=== PATIENT | female | born 1995 | race Two or more races ===

== ENCOUNTER 2019-04-24 08:50 | Inpatient (IN) | payer BC ==
[~2019-04-24] VITALS: Ht 170.2 cm; Wt 119.1 kg
[2019-04-25] MEDS ORDERED: OXYTOCIN 30U/ 0.9% NaCL 500ML 500 ML IV ONE (10:26)
[2019-04-25] MEDS: D5%-LACTATED RINGERS 1,000 ML IV SCH ×2 (10:26→22:04)
[2019-04-25] MEDS: LACTATED RINGERS 1,000 ML IV SCH ×2 (10:26→16:19)
[2019-04-25] MEDS ORDERED: CALCIUM CARBONATE 500 MG TAB.CHEW PO PRN (10:30)
[2019-04-25] MEDS ORDERED: TERBUTALINE 1 MG/ML, 1ML SQ PRN (10:30)
[2019-04-25] MEDS ORDERED: ONDANSETRON 2MG/ML, 2ML IVPush PRN (10:30)
[2019-04-25] MEDS ORDERED: FENTANYL PF 100 MCG/2ML IVPush PRN (10:30)
[2019-04-25] MEDS ORDERED: FENTANYL PF 100 MCG/2ML IV PRN (10:30)
[2019-04-25] MEDS ORDERED: TERBUTALINE 1 MG/ML, 1ML IVPush PRN (10:30)
[2019-04-25] MEDS ORDERED: MISOPROSTOL 25 MCG TABLET ONE ×2 (10:30→16:06)
[2019-04-25] MEDS: MISOPROSTOL 25 MCG TABLET VG PRN ×2 (10:46→16:00)
[2019-04-25 11:15] LABS: BASOPHILS # (AUTO) 0.01 x10^3/uL (0-0.1); BASOPHILS % (AUTO) 0 % (0-1); EOSINOPHILS # (AUTO) 0.01 x10^3/uL (0-0.4); EOSINOPHILS % (AUTO) 0 % (1-7); LYMPHOCYTES # (AUTO) 1.79 x10^3/uL (1-3.4); LYMPHOCYTES % (AUTO) 22 % (22-44); MD NO; MEAN CORPUSCULAR HEMOGLOBIN 29.3 pg (27.0-34.8); MEAN CORPUSCULAR VOLUME 88.8 fL (80-100); MEAN PLATELET VOLUME 7.9 fL (7.4-10.4); MONOCYTES # (AUTO) 0.65 x10^3/uL (0.2-0.8); MONOCYTES % (AUTO) 8 % (2-9); NEUTROPHILS # (AUTO) 5.57 x10^3/uL (1.8-6.8); NEUTROPHILS % (AUTO) 69 % (42-75); PLATELET COUNT 274 x10^3/uL (130-400); RED BLOOD COUNT 3.98 x10^6/uL (3.82-5.3)
[2019-04-25] MEDS ORDERED: NEWBORN KIT ONE (11:23)
[2019-04-25] MEDS ORDERED: FENTANYL/BUPIV./NS/PF 250 ML EPIDCONT SCH ×2 (20:11→21:09)
[2019-04-25] MEDS ORDERED: FENTANYL/BUPIV./NS/PF 250 ML EPIDCONT ONE ×2 (20:24→21:29)
[2019-04-25] MEDS ORDERED: OXYTOCIN 30U/ 0.9% NaCL 500ML 500 ML ONE (20:25)
[2019-04-25] MEDS ORDERED: LACTATED RINGERS 1,000 ML IV SCH (21:09)
[2019-04-25] MEDS ORDERED: BUPIVACAINE 0.25% ONE ×2 (21:27→21:29)
[2019-04-25] MEDS ORDERED: LACTATED RINGERS 1,000 ML IVBOLUS PRN (21:30)
[2019-04-25] MEDS ORDERED: EPHEDRINE 50 MG/ML, 1ML IVPush PRN (21:30)
[2019-04-25] MEDS ORDERED: NALOXONE 0.4 MG/ML, 1ML IVPush PRN (21:30)
[2019-04-25] MEDS: OXYTOCIN 30U/ 0.9% NaCL 500ML 500 ML IV PRN (21:55)
[2019-04-26 05:05] VITALS: BP 111/58
[2019-04-26] MEDS: LACTATED RINGERS 1,000 ML IV SCH (10:40)
[2019-04-26] MEDS ORDERED: ONDANSETRON 2MG/ML, 2ML ONE ×2 (10:42→13:13)
[2019-04-26] MEDS ORDERED: PREN1TAB60 PO (10:44)
[2019-04-26] MEDS ORDERED: OXYTOCIN 30U/ 0.9% NaCL 500ML 500 ML ONE (12:46)
[2019-04-26] MEDS: OXYTOCIN 30U/ 0.9% NaCL 500ML 500 ML IV PRN (13:01)
[2019-04-26] MEDS: OXYTOCIN 30U/ 0.9% NaCL 500ML 500 ML IV SCH ×2 (13:01→23:01)
[2019-04-26] MEDS ORDERED: SIMETHICONE 80 MG CHEW TAB PO PRN (13:30)
[2019-04-26] MEDS ORDERED: CARBOPROST TROMETHAMINE 250 MCG/ML, 1ML IM PRN (13:30)
[2019-04-26] MEDS ORDERED: RHOGAM FROM BLOOD BANK 1 NOTE EA IM/IV ONE (13:30)
[2019-04-26] MEDS ORDERED: OXYcodone/APAP 5/325MG TABLET PO PRN ×2 (13:30)
[2019-04-26] MEDS ORDERED: ONDANSETRON 2MG/ML, 2ML IV PRN (13:30)
[2019-04-26] MEDS ORDERED: METHYLERGONOVINE 0.2 MG/ML IM PRN (13:30)
[2019-04-26] MEDS ORDERED: MISOPROSTOL 200 MCG TABLET PR PRN (13:30)
[2019-04-26 14:38] LABS: BASOPHILS # (AUTO) 0.02 x10^3/uL (0-0.1); BASOPHILS % (AUTO) 0 % (0-1); EOSINOPHILS # (AUTO) 0.21 x10^3/uL (0-0.4); EOSINOPHILS % (AUTO) 1 % (1-7); LYMPHOCYTES # (AUTO) 0.93 x10^3/uL (1-3.4); LYMPHOCYTES % (AUTO) 5 % (22-44); MD NO; MEAN CORPUSCULAR HEMOGLOBIN 29.3 pg (27.0-34.8); MEAN CORPUSCULAR HGB CONC 32.9 g/dL (32.4-35.8); MEAN CORPUSCULAR VOLUME 89.1 fL (80-100); MONOCYTES # (AUTO) 1.03 x10^3/uL (0.2-0.8); MONOCYTES % (AUTO) 5 % (2-9); NEUTROPHILS # (AUTO) 18.53 x10^3/uL (1.8-6.8); NEUTROPHILS % (AUTO) 89 % (42-75); PLATELET COUNT 256 x10^3/uL (130-400); RED BLOOD COUNT 3.81 x10^6/uL (3.82-5.3); RED CELL DISTRIBUTION WIDTH 15.3 % (9.6-15.2)
[2019-04-26] MEDS ORDERED: IBUPROFEN 600 MG TABLET ONE (15:01)
[2019-04-26] MEDS ORDERED: IBUPROFEN 800 MG TABLET ONE (15:06)
[2019-04-26] MEDS: IBUPROFEN 800 MG TABLET PO PRN ×2 (15:07→23:07)
[2019-04-26 15:30] VITALS: BP 119/83
[2019-04-26] MEDS: ACETAMINOPHEN 500 MG TABLET PO PRN (16:40)
[2019-04-26] MEDS ORDERED: GENTAMICIN PER PHARMACY MC PRN (17:00)
[2019-04-26] MEDS: AMPICILLIN 2 GM in SODIUM CHLORIDE 0.9% 100 ML IV SCH ×2 (17:16→23:09)
[2019-04-26] MEDS: CLINDAMYCIN PMX 900MG/50ML 50 ML IV SCH (17:57)
[2019-04-26] MEDS ORDERED: PHARMACOKINETIC MONITORING MC PRN (18:00)
[2019-04-26] MEDS: GENTAMICIN 420 MG in SODIUM CHLORIDE 0.9% 100 ML IV SCH (19:17)
[2019-04-26] MEDS ORDERED: METHYLERGONOVINE 0.2 MG/ML IM ONE (19:39)
[2019-04-26 20:00] VITALS: BP 121/79
[2019-04-26 20:51] LABS: MEAN CORPUSCULAR HEMOGLOBIN 29.5 pg (27.0-34.8); MEAN CORPUSCULAR HGB CONC 33.1 g/dL (32.4-35.8); MEAN CORPUSCULAR VOLUME 89.2 fL (80-100); MEAN PLATELET VOLUME 7.9 fL (7.4-10.4); PLATELET COUNT 247 x10^3/uL (130-400); RED BLOOD COUNT 3.14 x10^6/uL (3.82-5.3); RED CELL DISTRIBUTION WIDTH 14.9 % (9.6-15.2)
[2019-04-26 21:05] LABS: BASOPHILS # (AUTO) 0.03 x10^3/uL (0-0.1); BASOPHILS % (AUTO) 0 % (0-1); EOSINOPHILS # (AUTO) 0.01 x10^3/uL (0-0.4); EOSINOPHILS % (AUTO) 0 % (1-7); LYMPHOCYTES # (AUTO) 2.17 x10^3/uL (1-3.4); LYMPHOCYTES % (AUTO) 11 % (22-44); MD NO; MONOCYTES # (AUTO) 0.98 x10^3/uL (0.2-0.8); MONOCYTES % (AUTO) 5 % (2-9); NEUTROPHILS # (AUTO) 16.72 x10^3/uL (1.8-6.8); NEUTROPHILS % (AUTO) 84 % (42-75)
[2019-04-26] MEDS: DOCUSATE 100 MG CAPSULE PO PRN (23:07)
[2019-04-27 00:10] VITALS: BP 96/67
[2019-04-27] MEDS: OXYTOCIN 30U/ 0.9% NaCL 500ML 500 ML IV SCH (01:14)
[2019-04-27] MEDS: CLINDAMYCIN PMX 900MG/50ML 50 ML IV SCH ×3 (02:06→18:27)
[2019-04-27 04:30] VITALS: BP 102/68
[2019-04-27] MEDS: ACETAMINOPHEN 500 MG TABLET PO PRN ×3 (05:16→23:23)
[2019-04-27] MEDS: AMPICILLIN 2 GM in SODIUM CHLORIDE 0.9% 100 ML IV SCH ×4 (05:17→23:23)
[2019-04-27 05:48] LABS: CREATININE 0.88 mg/dL (0.55-1.02)
[2019-04-27 07:05] VITALS: BP 101/70
[2019-04-27] MEDS: PRENATAL VIT/IRON/FA 1 EACH TABLET PO SCH (07:47)
[2019-04-27] MEDS: DOCUSATE 100 MG CAPSULE PO PRN ×2 (07:47→19:39)
[2019-04-27] MEDS: IBUPROFEN 800 MG TABLET PO PRN ×2 (07:47→17:18)
[2019-04-27 14:17] VITALS: BP 113/73
[2019-04-27] MEDS: GENTAMICIN 420 MG in SODIUM CHLORIDE 0.9% 100 ML IV SCH (19:39)
[2019-04-27 20:00] VITALS: BP 113/70
[2019-04-27 23:30] VITALS: BP 107/73
[2019-04-28] MEDS: CLINDAMYCIN PMX 900MG/50ML 50 ML IV SCH ×2 (02:00→09:30)
[2019-04-28 05:00] VITALS: BP 120/78
[2019-04-28] MEDS: OXYTOCIN 30U/ 0.9% NaCL 500ML 500 ML IV SCH ×2 (05:01→15:01)
[2019-04-28] MEDS: AMPICILLIN 2 GM in SODIUM CHLORIDE 0.9% 100 ML IV SCH ×2 (05:05→10:48)
[2019-04-28 07:20] VITALS: BP 118/79
[2019-04-28] MEDS: PRENATAL VIT/IRON/FA 1 EACH TABLET PO SCH (09:00)
[2019-04-28] MEDS ORDERED: IBUP-1222 PO (09:59)
[2019-04-28] MEDS ORDERED: FERR240T PO (10:04)
[2019-04-28] MEDS: IBUPROFEN 800 MG TABLET PO PRN (12:25)
== END 2019-04-28 15:20 | disposition home or self-care (01) | DRG 805 ==
LOC: LDIP 04-25 09:41 → 2NW 04-26 15:16
PROVIDERS: ADMIT Obstetrics & Gynecology; ATTEND Obstetrics & Gynecology
PROC: 10E0XZZ Delivery of Products of Conception, External Approach (ICD-10-PCS; principal; 2019-04-26)
PROC: 10907ZC Drainage of Amniotic Fluid, Therapeutic from Products of Conception, Via Natural or Artificial Opening (ICD-10-PCS; 2019-04-26)
DX: O66.0 Obstructed labor due to shoulder dystocia (principal); O75.3 Other infection during labor; Z37.0 Single live birth; O72.1 Other immediate postpartum hemorrhage; Z3A.39 39 weeks gestation of pregnancy; O90.81 Anemia of the puerperium; D64.9 Anemia, unspecified
CPT/HCPCS: 36415; J7121; 80170; 82565; 85025; 86850; 86900; G0378; J0290; J2405; J3490; J1580; J2210; J2590; J3010; J7120